=== PATIENT | female | born 1975 | race Caucasian/White ===

== ENCOUNTER 2024-09-28 12:05 | Emergency (ER) | payer BC, OTHER ==
[2024-09-28] MEDS ORDERED: Lidocaine 1% w/Epinephrine 1:100K 20 ML VIAL ONE (13:27)
[2024-09-28] MEDS ORDERED: Rabies Vaccine Human 2.5 UNITS VIAL ONE (13:28)
[2024-09-28] MEDS ORDERED: Boostrix 0.5 ML (Tdap) VIAL (>/=7 yrs of age) ONE (13:35)
[2024-09-28] MEDS ORDERED: Rabies Immune Globulin/PF 1,500 UNIT/5 ML VIAL ONE (13:35)
[2024-09-28] MEDS ORDERED: Rabies Immune Globulin/PF 300 UNITS/ML VIAL ONE (13:35)
[2024-09-28] MEDS ORDERED: Amoxicillin/Potassium Clav 875 MG TAB ONE (13:36)
[2024-09-28] MEDS ORDERED: Bacitracin 1 PK ONE (14:26)
== END 2024-09-28 15:00 | disposition home or self-care (01) ==
LOC: MADERS 12:05
DX: S71.152A Open bite, left thigh, initial encounter (principal); S30.810A Abrasion of lower back and pelvis, initial encounter; S50.811A Abrasion of right forearm, initial encounter; Z23 Encounter for immunization; I10 Essential (primary) hypertension; F90.9 Attention-deficit hyperactivity disorder, unspecified type; Z79.899 Other long term (current) drug therapy; W54.0XXA Bitten by dog, initial encounter
CPT/HCPCS: 12001; 90375; 90471; 90675; 90715; 96372